=== PATIENT | female | born 1975 | race Caucasian/White ===

== ENCOUNTER 2018-02-25 18:43 | Emergency (ER) | payer OTHER ==
[~2018-02-25] VITALS: Ht 175.3 cm; Wt 64.0 kg
[2018-02-25 18:50] VITALS: BP 115/72
== END 2018-02-25 18:59 | disposition home or self-care (01) ==
LOC: ED 18:53
DX: J02.0 Streptococcal pharyngitis (principal); F32.9 Major depressive disorder, single episode, unspecified
CPT/HCPCS: 99283

== ENCOUNTER → 2018-05-05 | Outpatient (CLI) | payer OTHER | END | disposition home or self-care (01) | LOC: CFH 16:18 | PROVIDERS: ATTEND Family Medicine | DX: N83.202 Unspecified ovarian cyst, left side (principal); R93.89 Abnormal findings on diagnostic imaging of other specified body structures; Z97.5 Presence of (intrauterine) contraceptive device | CPT/HCPCS: 76830 ==

== ENCOUNTER 2019-05-22 09:17 | Emergency (ER) | payer OTHER ==
[~2019-05-22] VITALS: Ht 175.3 cm; Wt 94.0 kg
[2019-05-22 09:33] VITALS: BP 148/73
[2019-05-22] MEDS ORDERED: VENL100T PO (09:45)
[2019-05-22] MEDS ORDERED: PHENAZOPYRIDINE 200 MG TABLET PO ONE (10:00)
[2019-05-22] MEDS ORDERED: PHENAZOPYRIDINE 200 MG TABLET ONE (10:07)
[2019-05-22 10:30] LABS: MICROSCOPIC INDICATED
[2019-05-22 10:34] LABS: CULTURE INDICATED? YES
== END 2019-05-22 12:00 | disposition home or self-care (01) ==
LOC: ED 10:01
DX: N30.01 Acute cystitis with hematuria (principal)
CPT/HCPCS: 81001; 87077; 87086; 87186; 99283

== ENCOUNTER 2019-10-22 20:05 | Emergency (ER) | payer OTHER ==
[~2019-10-22] VITALS: Ht 175.3 cm; Wt 60.9 kg
[~2019-10-22 20:05] MED LIST: VENL100T PO
[2019-10-22 20:19] VITALS: BP 130/74
[2019-10-22] MEDS ORDERED: metroNIDAZOLE 500 MG TABLET ONE (22:55)
[2019-10-22] MEDS ORDERED: CEFTRIAXONE 250 MG ONE (22:56)
[2019-10-22] MEDS ORDERED: AZITHROMYCIN 250 MG TABLET ONE (22:56)
[2019-10-22] MEDS ORDERED: metroNIDAZOLE 500 MG TABLET PO ONE (23:00)
[2019-10-22] MEDS ORDERED: AZITHROMYCIN 500 MG TABLET PO ONE (23:00)
[2019-10-22] MEDS ORDERED: CEFTRIAXONE 250 MG IM ONE (23:00)
== END 2019-10-22 23:17 | disposition home or self-care (01) ==
LOC: ED 22:28
DX: A59.01 Trichomonal vulvovaginitis (principal); N89.8 Other specified noninflammatory disorders of vagina
CPT/HCPCS: 96372; 99283; J0696

== ENCOUNTER 2019-11-05 20:31 | Emergency (ER) | payer OTHER ==
[~2019-11-05] VITALS: Ht 175.3 cm; Wt 61.7 kg
[2019-11-05 22:22] LABS: MICROSCOPIC AUTO
[2019-11-05 23:05] VITALS: BP 98/72
[2019-11-06 02:10] LABS: HCG UR SG 1.007 (1.003-1.030)
[2019-11-06 02:32] LABS: CLUE CELLS NONE SEEN (NONE SEEN); WET PREP WBCS MODERATE (FEW)
== END 2019-11-06 03:48 | disposition home or self-care (01) ==
LOC: ED 11-06 03:15
DX: A59.01 Trichomonal vulvovaginitis (principal); N89.8 Other specified noninflammatory disorders of vagina; R10.2 Pelvic and perineal pain; R11.0 Nausea
CPT/HCPCS: 81001; 81025; 87086; 87147; 87210; 87491; 87591; 87808; 99284